=== PATIENT | female | born 1980 | race Caucasian/White ===

== ENCOUNTER 2023-03-02 01:29 | Inpatient (IN) | payer MEDICAID ==
[~2023-03-02] VITALS: Ht 157.5 cm; Wt 60.0 kg
[~2023-03-02 01:29] MED LIST: ALLO300T2 PO; DILT300C34 PO; FAMOTIDINE; METO-467 PO; RISP0.257 PO; TRIA15CR61 TOP; trazadone
[2023-03-02] MEDS ORDERED: LORazepam 2 mg/ml vial IV ONE (02:05)
[2023-03-02] MEDS ORDERED: normal saline 1000ml 1,000 ML IV ONE ×3 (02:05→05:20)
[2023-03-02] MEDS ORDERED: midazolam 1 mg/ML 2ml injection IV ONE ×2 (02:15→05:20)
[2023-03-02 02:33] LABS: BASOPHILS % (AUTO) 0.2 % (0-1); EOSINOPHILS % (AUTO) 0.1 % (0-6); HEMOGLOBIN 16.7 g/dl (12.0-16.0); LYMPHOCYTES # (AUTO) 1.2 X10'3 (1.1-4.8); LYMPHOCYTES % (AUTO) 8.3 % (21-51); MEAN CORPUSCULAR HEMOGLOBIN 32.2 PG (27.0-31.0); MEAN CORPUSCULAR HGB CONC 33.5 g/dL (33.0-36.5); MEAN CORPUSCULAR VOLUME 96.3 FL (78-98); MEAN PLATELET VOLUME 8.4 FL (7.4-10.4); MONOCYTES # (AUTO) 0.6 X10'3 (0-0.9); MONOCYTES % (AUTO) 4.1 % (2-12); NEUTROPHILS # (AUTO) 12.8 X10'3 (1.8-7.7); NEUTROPHILS % (AUTO) 87.3 % (42-75); PLATELET COUNT 299 X10'3 (140-440); RED CELL DISTRIBUTION WIDTH 12.9 % (11.5-14.5); WHITE BLOOD COUNT 14.7 X10'3 (4.5-11.0)
[2023-03-02] MEDS ORDERED: ondansetron/PF 4mg/2ml inj IV ONE (03:05)
[2023-03-02 04:07] LABS: ALANINE AMINOTRANSFERASE 49 U/L (12-78); ALBUMIN 5.3 G/DL (3.4-5.0); ALBUMIN/GLOBULIN RATIO 1.1 (1.1-1.5); ALKALINE PHOSPHATASE 80 IU/L (46-116); ANION GAP 23 (8-16); ASPARTATE AMINO TRANSFERASE 40 U/L (10-37); BILIRUBIN,TOTAL 0.5 MG/DL (0.1-1.0); BLOOD UREA NITROGEN 22 MG/DL (7-18); BUN/CREATININE RATIO 8.9 (10.0-20.0); CALCIUM 11.1 MG/DL (8.5-10.1); CHLORIDE 91 MMOL/L (99-107); CREATININE 2.48 MG/DL (0.40-0.90); ETHANOL < 10 MG/DL (<10); GLUCOSE 319 MG/DL (70-104); PRO BRAIN NATRIURETIC PEPTIDE 130 PG/ML (0-125); SODIUM 134 MMOL/L (135-145); TOTAL PROTEIN 10.1 G/DL (6.4-8.2); eCRCL 23 ML/MIN; eGFR 21 ML/MIN
[2023-03-02] MEDS ORDERED: POTASSIUM BICARB 20meq eff tab 20 MEQ TABLET.EFF PO ONE (04:30)
[2023-03-02] MEDS ORDERED: CefTRIAXone 2gm/D5W 50ml BAG 50 ML IV ONE (05:30)
[2023-03-02 06:31] LABS: BILIRUBIN,URINE NEGATIVE (Neg); CLARITY,URINE SLIGHTLY CLOUDY (Clear); COLOR,URINE YELLOW (Yellow); GLUCOSE, URINE NEGATIVE (Neg); KETONES,URINE NEGATIVE (Neg); LEUKOCYTE ESTERASE ,URINE NEGATIVE (Neg); NITRITES, URINE NEGATIVE (Neg); OCCULT BLOOD,URINE NEGATIVE (Neg); PROTEIN,URINE TRACE mg/dl (Neg); UROBILINOGEN,URINE 0.2 E.U/dL (0.2-1.0)
[2023-03-02 06:34] LABS: UA COLLECTION TYPE CLN CATCH MIDSTREAM
[2023-03-02 06:44] LABS: BACTERIA,URINE 2+ /HPF (Neg); MUCUS STRANDS MANY /LPF (Neg); RBC,URINE 0-2 /HPF (0-2); SQUAMOUS EPITHELIAL CELL,UR MANY /LPF (FEW); WBC,URINE 0-4 /HPF (0-4)
[2023-03-02 07:00] LABS: URINE AMPHETAMINE SCREEN NEGATIVE (Neg); URINE BARBITUATE SCREEN NEGATIVE (Neg); URINE BENZODIAZEPINES SCREEN POSITIVE (Neg); URINE CANNABINOID SCREEN POSITIVE (Neg); URINE COCAINE SCREEN NEGATIVE (Neg); URINE METHADONE SCREEN NEGATIVE (Neg); URINE OPIATE SCREEN NEGATIVE (Neg); URINE PHENCYCLIDINE SCREEN NEGATIVE (Neg)
[2023-03-02] MEDS ORDERED: magnesium hydroxide 30ml (MOM) UD suspension PO PRN (08:20)
[2023-03-02] MEDS ORDERED: acetaminophen 325mg tablet PO PRN (08:20)
[2023-03-02] MEDS ORDERED: mag hydrox/Alum hydrox/simeth 30ml oral suspension PO PRN (08:20)
[2023-03-02] MEDS ORDERED: potassium Cl 20 mEq SR tablet PO PRN ×2 (08:20)
[2023-03-02] MEDS ORDERED: dextrose 50%-water 50ml dispensing syringe IV PRN (08:20)
[2023-03-02] MEDS ORDERED: ondansetron/PF 4mg/2ml inj IV PRN (08:20)
[2023-03-02] MEDS ORDERED: magnesium 2GM in 50ml NS 50 ML IV PRN (08:20)
[2023-03-02] MEDS ORDERED: potassium Cl 40MEQ/1/2NS 520ml 520 ML IV PRN (08:20)
[2023-03-02] MEDS ORDERED: morphine 2 MG/ML inj. syringe IV PRN (08:20)
[2023-03-02] MEDS ORDERED: haloperidol lactate 5mg/ml inj IM PRN (08:20)
[2023-03-02] MEDS ORDERED: LORazepam 2 mg/ml vial IV PRN ×2 (08:20)
[2023-03-02] MEDS ORDERED: magnesium Cl slow-release 64mg tablet PO PRN (08:20)
[2023-03-02] MEDS ORDERED: magnesium 4gm in 100ml NS 100 ML IV PRN (08:20)
[2023-03-02 09:02] LABS: HEMOGLOBIN A1C 4.4 % (4.5-6.2)
[2023-03-02 09:08] LABS: CHOL/HDL RATIO 2.1 (0.00-4.99); CHOLESTEROL 238 MG/DL (0-200); HDL CHOLESTEROL 111 MG/DL (35-60); LDL CHOLESTEROL 92 MG/DL (50-100); PHOSPHORUS 7.9 MG/DL (2.3-4.5); THYROID STIMULATING HORMONE 8.22 ulU/ml (0.34-4.50); TRIGLYCERIDES 198 MG/DL (20-135)
[2023-03-02] MEDS: normal saline 1000ml 1,000 ML IV SCH ×2 (09:50→22:08)
[2023-03-02] MEDS: morphine 2 MG/ML inj. syringe IV PRN ×2 (09:53→18:09)
[2023-03-02] MEDS: thiamine 100mg/ml 2ml inj. IV SCH ×2 (13:07→22:04)
[2023-03-02 20:00] VITALS: RESP 16; O2SAT 100
[2023-03-02] MEDS: K and/or MAG REPLACEMENT MC SCH (20:00)
[2023-03-02] MEDS: docusate sod 100mg capsule PO SCH (20:00)
[2023-03-02 21:20] VITALS: BP 115/78; PULSE 92; RESP 16; TEMP 98.3; O2SAT 100
[2023-03-03 02:00] VITALS: BP 95/53; PULSE 85; RESP 18; TEMP 97.8; O2SAT 96
[2023-03-03] MEDS: normal saline 1000ml 1,000 ML IV SCH ×2 (05:18→14:20)
[2023-03-03 06:51] LABS: EOSINOPHILS # (AUTO) 0.1 X10'3 (0-0.9); MONOCYTES # (AUTO) 0.4 X10'3 (0-0.9); RED CELL DISTRIBUTION WIDTH 12.8 % (11.5-14.5)
[2023-03-03 06:55] LABS: BASOPHILS % (AUTO) 0.2 % (0-1); EOSINOPHILS % (AUTO) 1.5 % (0-6); HEMATOCRIT 30.6 % (35.0-45.0); HEMOGLOBIN 10.3 g/dl (12.0-16.0); LYMPHOCYTES # (AUTO) 2.3 X10'3 (1.1-4.8); LYMPHOCYTES % (AUTO) 38.8 % (21-51); MEAN CORPUSCULAR HEMOGLOBIN 32.3 PG (27.0-31.0); MEAN CORPUSCULAR HGB CONC 33.5 g/dL (33.0-36.5); MEAN CORPUSCULAR VOLUME 96.4 FL (78-98); MEAN PLATELET VOLUME 7.9 FL (7.4-10.4); MONOCYTES % (AUTO) 7.3 % (2-12); NEUTROPHILS # (AUTO) 3.1 X10'3 (1.8-7.7); NEUTROPHILS % (AUTO) 52.2 % (42-75); PLATELET COUNT 174 X10'3 (140-440); RED BLOOD COUNT 3.17 X10'6 (4.20-5.60); WHITE BLOOD COUNT 5.9 X10'3 (4.5-11.0)
[2023-03-03 07:00] VITALS: BP 101/61; PULSE 90; RESP 16; TEMP 98; O2SAT 100
[2023-03-03 07:12] LABS: ALANINE AMINOTRANSFERASE 24 U/L (12-78); ALBUMIN 2.9 G/DL (3.4-5.0); ALKALINE PHOSPHATASE 38 IU/L (46-116); ANION GAP 8 (8-16); ASPARTATE AMINO TRANSFERASE 24 U/L (10-37); BILIRUBIN,TOTAL 0.3 MG/DL (0.1-1.0); BLOOD UREA NITROGEN 6 MG/DL (7-18); BUN/CREATININE RATIO 10.5 (10.0-20.0); CHLORIDE 109 MMOL/L (99-107); CREATININE 0.57 MG/DL (0.40-0.90); GLUCOSE 91 MG/DL (70-104); MAGNESIUM 1.7 MG/DL (1.5-2.4); POTASSIUM 3.7 MMOL/L (3.5-5.1); SODIUM 138 MMOL/L (135-145); TOTAL CARBON DIOXIDE 20.6 MMOL/L (24-32); TOTAL PROTEIN 5.8 G/DL (6.4-8.2); eCRCL 102 ML/MIN; eGFR > 90 ML/MIN
[2023-03-03] MEDS ORDERED: pantoprazole 40 MG vial IV SCH (08:00)
[2023-03-03] MEDS ORDERED: CefTRIAXone/D5W-Rocephin 1gm 50 ML IV SCH (08:00)
[2023-03-03] MEDS ORDERED: folic acid 1mg/0.2ml inj IV SCH (08:00)
[2023-03-03] MEDS: K and/or MAG REPLACEMENT MC SCH (08:00)
[2023-03-03] MEDS: docusate sod 100mg capsule PO SCH (08:00)
[2023-03-03] MEDS: thiamine 100mg/ml 2ml inj. IV SCH (08:05)
[2023-03-03] MEDS: morphine 2 MG/ML inj. syringe IV PRN (09:24)
[2023-03-03] MEDS ORDERED: HYDROcodone/acetaminophen 5mg/325mg tablet PO PRN (10:40)
[2023-03-03 11:00] VITALS: BP 109/68; PULSE 96; RESP 24; TEMP 98.5; O2SAT 100
[2023-03-03 15:00] VITALS: BP 122/70; PULSE 86; RESP 18; TEMP 98.2; O2SAT 100
[2023-03-04] MEDS ORDERED: folic acid 1mg tablet PO SCH (08:00)
[2023-03-04] MEDS ORDERED: thiamine 100mg tablet PO SCH (08:00)
[2023-03-07] MEDS ORDERED: thiamine 100mg tablet PO SCH (08:00)
[2023-03-07] MEDS ORDERED: folic acid 1mg tablet PO SCH (08:00)
== END 2023-03-03 16:05 | disposition home or self-care (01) | DRG 425 ==
LOC: ER 01:29 → ED HOLD 08:30 → EDBEDREQ 19:44 → PCU 3S 21:19
PROVIDERS: ADMIT Internal Medicine; ATTEND Internal Medicine
DX: E87.6 Hypokalemia (principal); F10.131 Alcohol abuse with withdrawal delirium; N17.9 Acute kidney failure, unspecified; E87.20 Acidosis, unspecified; E83.39 Other disorders of phosphorus metabolism; E87.3 Alkalosis; N18.4 Chronic kidney disease, stage 4 (severe); E87.1 Hypo-osmolality and hyponatremia; D72.829 Elevated white blood cell count, unspecified; E78.5 Hyperlipidemia, unspecified; F12.10 Cannabis abuse, uncomplicated; F13.10 Sedative, hypnotic or anxiolytic abuse, uncomplicated; D75.1 Secondary polycythemia; Z20.822 Contact with and (suspected) exposure to COVID-19; E87.8 Other disorders of electrolyte and fluid balance, not elsewhere classified; E83.52 Hypercalcemia; G43.909 Migraine, unspecified, not intractable, without status migrainosus; G40.909 Epilepsy, unspecified, not intractable, without status epilepticus; Z82.3 Family history of stroke; Z63.4 Disappearance and death of family member; Z88.1 Allergy status to other antibiotic agents; Z79.899 Other long term (current) drug therapy; Z91.013 Allergy to seafood; Z90.49 Acquired absence of other specified parts of digestive tract
CPT/HCPCS: 36415; 71045; 76700; 80053; 80061; 80305; 80320; 81001; 83036; 83605; 83735; 83880; 84100; 84132; 84443; 84484; 85025; 87040; 87081; 87811; 93005; 93306; 99285; A4615; C9113; G0378; J0696; J2060; J2250; J2270; J2405; J3411; J3490; J7030

== ENCOUNTER 2024-09-30 07:25 | Day surgery (SDC) | payer MEDICAID ==
[2024-09-30] VITALS (7 sets, daily range): BP systolic 108–129; BP diastolic 65–80; PULSE 62–79; RESP 12–17; TEMP 97.3; O2SAT 100
[~2024-09-30] VITALS: Ht 157.5 cm; Wt 48.0 kg
[~2024-09-30 07:25] MED LIST changes: +ALBUTEROL; +BUSP10TA3; +CYCL-920 PO; -DILT300C34 PO; +ERGO400C PO; -FAMOTIDINE; +FLUT12AE4 INH; +GABA-1405 PO; +HYDR50TA65; +KEN0.1O TOP; +LIPA1CAP8 PO; +MAGN400T56 PO; -METO-467 PO; +NYST15OI; +ONDA-243; +PANT40TA54 PO; +POTA99CA PO; +PRAZ2CAP2 PO; -RISP0.257 PO; +RISP4TAB94 PO; +THIA100T66 PO; +TOP100T PO; +VENL75CA61 PO; -trazadone
[2024-09-30] MEDS ORDERED: LIDOcaine 2% Viscous 15ml cup ONE (07:34)
[2024-09-30] MEDS ORDERED: propofol inj 20 ML IV ONE ×5 (09:42→10:07)
== END 2024-09-30 11:33 | disposition home or self-care (01) ==
LOC: OR 07:25
PROVIDERS: ATTEND Internal Medicine Gastroenterology
DX: K52.9 Noninfective gastroenteritis and colitis, unspecified (principal); K30 Functional dyspepsia; K31.89 Other diseases of stomach and duodenum; K57.30 Diverticulosis of large intestine without perforation or abscess without bleeding; K21.9 Gastro-esophageal reflux disease without esophagitis; F32.A Depression, unspecified; Z90.49 Acquired absence of other specified parts of digestive tract; Z91.013 Allergy to seafood; Z91.041 Radiographic dye allergy status; Z88.8 Allergy status to other drugs, medicaments and biological substances
CPT/HCPCS: 43239; 45380; 82948; J2704; J7040; Z7512; A4615; A4620